=== PATIENT | male | born 1940 | race African-American/Black ===

== ENCOUNTER 2020-07-28 22:33 | Inpatient (IN) ==
[2020-07-28] MEDS ORDERED: SODIUM CHLORIDE 0.9% 1,000 ML IV STA (23:15)
[2020-07-28 23:29] LABS: Basophils % 0.1 % (0.0-0.8); Hematocrit 42.5 VOL% (42.0-52.0); Hemoglobin 14.4 GM/DL (14.0-18.0); Immature Granulocytes % 0.5 %; Immature Granulocytes Absolute 0.05 #; Lymphocytes # 0.6 10*3/uL (1.4-4.0); Lymphocytes % 6.3 % (21.2-54.2); Mean Corpuscular HGB Conc 33.9 GM/DL (32-36); Mean Platelet Volume 12.5 FL (9.6-12.0); Monocytes % 3.8 % (1.7-12.7); Neutrophils % 89.3 % (38.7-73.9); Platelet Count 152 T/CUMM (130-400); Red Cell Distribution Width 14.6 % (9.3-17.3); White Blood Count 10.1 T/CUMM (4-12)
[2020-07-28 23:47] LABS: Albumin 3.7 G/DL (3.4-5.0); Bilirubin,Total 0.9 MG/DL (0.2-1.0); Calcium 9.1 MG/DL (8.5-10.1); Osmolality,Calculated 341.2 MOS/KG (273-304); Total Protein 7.9 G/DL (6.4-8.2)
[2020-07-29 00:12] LABS: Potassium 6.4 MMOL/L (3.5-5.1)
[2020-07-29] MEDS ORDERED: SODIUM CHLORIDE 0.9% 1,000 ML IV STA (00:19)
[2020-07-29] MEDS ORDERED: SODIUM CHLORIDE 0.9% 1,000 ML IV ONE (01:00)
[2020-07-29] MEDS ORDERED: SODIUM BICARB INJ 100 MEQ in STERILE WATER INJ 400 ML IV PRN (01:00)
[2020-07-29] MEDS ORDERED: ONDANSETRON 4 MG/2 ML VIAL IV PRN (01:00)
[2020-07-29] MEDS ORDERED: DEXTROSE 50% 25 GM/50 ML VIAL IV PRN ×2 (01:00)
[2020-07-29] MEDS ORDERED: hydrALAZINE 20 MG/1 ML VIAL IV PRN (01:00)
[2020-07-29] MEDS ORDERED: ACETAMINOPHEN 325 MG TABLET PO PRN (01:00)
[2020-07-29] MEDS ORDERED: SODIUM PHOSPHATE INJ 20.2 MMOL in SODIUM CHLORIDE 0.9% 250 ML IV PRN (01:00)
[2020-07-29] MEDS ORDERED: INSULIN REGULAR 100 UNIT/ML IV ONE (01:34)
[2020-07-29] MEDS: ENOXAPARIN 30 MG/0.3 ML SYRINGE SUBCUT SCH (01:45)
[2020-07-29 01:47] LABS: Bacteria,Urine Occasional /HPF (Few); Bilirubin,Urine Negative (Negative); Blood, Urine Moderate mg/dL (Negative); Glucose,Urine (UA) >=500 mg/dL (Negative); Hyaline Casts,Urine 1 /LPF (0-3); Ketones,Urine 5 mg/dL (Negative); Mucus,Urine Occasional /LPF (Occasional); Nitrite,Urine Negative (Negative); Protein,Urine Negative; RBC,Urine 2 /HPF (0-4); Urine Appearance Slightly Hazy (Clear); Urine Color Yellow (Yellow); Urine Specific Gravity 1.016 (1.001-1.035); Urine Urobilinogen < 2.0 EU/DL (0.2-1.0)
[2020-07-29 03:03] LABS: ABG Base Excess -12.8 MMOL/L (-2.5-2.5); ABG HCO3 14.6 MMOL/L (20-26); ABG Oxygen Saturation 93.8 % (95-100); ABG PCO2 29.8 MM HG (35-48); ABG PH 7.258 (7.35-7.45); ABG PO2 80.3 MM HG (80-95)
[2020-07-29 03:24] LABS: Hematocrit 38.7 VOL% (42.0-52.0); Hemoglobin 13.1 GM/DL (14.0-18.0); Immature Granulocytes % 0.4 %; Immature Granulocytes Absolute 0.01 #; Lymphocytes # 0.3 10*3/uL (1.4-4.0); Lymphocytes % 10.7 % (21.2-54.2); Mean Corpuscular HGB Conc 33.9 GM/DL (32-36); Mean Corpuscular Volume 84.1 FL (87-102); Mean Platelet Volume 12.2 FL (9.6-12.0); Monocytes % 0.4 % (1.7-12.7); Neutrophils % 88.5 % (38.7-73.9); Platelet Count 133 T/CUMM (130-400); Red Cell Distribution Width 13.9 % (9.3-17.3); White Blood Count 2.7 T/CUMM (4-12)
[2020-07-29] MEDS: SODIUM CHLORIDE 0.9% 1,000 ML IV SCH ×2 (03:41→04:47)
[2020-07-29 03:42] LABS: Calcium 8.1 MG/DL (8.5-10.1); Osmolality,Calculated 336.7 MOS/KG (273-304); Potassium 4.8 MMOL/L (3.5-5.1)
[2020-07-29] MEDS ORDERED: INSULIN REGULAR DRIP 100 ML IV SCH (04:00)
[2020-07-29] MEDS ORDERED: LORazepam 2 MG/1 ML VIAL ONE (04:04)
[2020-07-29] MEDS ORDERED: LORazepam 2 MG/1 ML VIAL IV STA (04:07)
[2020-07-29 04:36] LABS: Hypochromasia 1+; Microcytosis 1+; Ovalocytes Slight
[2020-07-29 06:04] LABS: Calcium 7.9 MG/DL (8.5-10.1); Osmolality,Calculated 335.6 MOS/KG (273-304); Potassium 4.7 MMOL/L (3.5-5.1)
[2020-07-29] MEDS ORDERED: SODIUM CHLORIDE 0.9% 1,000 ML IV SCH (06:30)
[2020-07-29] MEDS ORDERED: GLUCAGON 1 MG VIAL IM PRN (08:42)
[2020-07-29] MEDS ORDERED: INSULIN DETEMIR 100 UNIT/ML SUBCUT SCH (09:00)
[2020-07-29] MEDS: INSULIN GLARGINE 100 UNIT/ML SUBCUT SCH ×2 (09:17→22:01)
[2020-07-29] MEDS: PANTOPRAZOLE 40 MG TABLET PO SCH (09:29)
[2020-07-29] MEDS: SODIUM CHLORIDE 0.45% 1,000 ML IV SCH ×3 (09:30→17:30)
[2020-07-29 09:56] LABS: Calcium 8.1 MG/DL (8.5-10.1); Osmolality,Calculated 330.1 MOS/KG (273-304); Potassium 5.1 MMOL/L (3.5-5.1)
[2020-07-29] MEDS: INSULIN REGULAR 100 UNIT/ML SUBCUT SCH ×4 (11:33→20:40)
[2020-07-29 15:29] LABS: Calcium 8.1 MG/DL (8.5-10.1); Potassium 4.7 MMOL/L (3.5-5.1)
[2020-07-29 18:11] LABS: Calcium 8.1 MG/DL (8.5-10.1); Potassium 4.6 MMOL/L (3.5-5.1)
[2020-07-29] MEDS ORDERED: SODIUM CHLORIDE 0.45% 1,000 ML IV SCH (18:30)
[2020-07-29 21:53] LABS: Calcium 8.3 MG/DL (8.5-10.1); Osmolality,Calculated 322.6 MOS/KG (273-304); Potassium 4.5 MMOL/L (3.5-5.1)
[2020-07-30] MEDS: INSULIN REGULAR 100 UNIT/ML SUBCUT SCH ×6 (00:20→21:08)
[2020-07-30] MEDS: SODIUM CHLORIDE 0.45% 1,000 ML IV SCH ×3 (01:39→16:42)
[2020-07-30] MEDS: ENOXAPARIN 30 MG/0.3 ML SYRINGE SUBCUT SCH (01:40)
[2020-07-30 06:12] LABS: Basophils % 0.5 % (0.0-0.8); Eosinophils # 0.1 10*3/uL (0.0-0.87); Eosinophils % 6.1 % (0.00-10.9); Hematocrit 36.9 VOL% (42.0-52.0); Hemoglobin 12.4 GM/DL (14.0-18.0); Immature Granulocytes % 5.6 %; Immature Granulocytes Absolute 0.11 #; Lymphocytes # 0.7 10*3/uL (1.4-4.0); Lymphocytes % 35.4 % (21.2-54.2); Mean Corpuscular HGB Conc 33.6 GM/DL (32-36); Mean Corpuscular Volume 83.7 FL (87-102); Mean Platelet Volume 12.4 FL (9.6-12.0); Neutrophils % 50.4 % (38.7-73.9); Platelet Count 118 T/CUMM (130-400); Red Blood Count 4.41 MC/CUMM (3.8-5.5); Red Cell Distribution Width 14.4 % (9.3-17.3)
[2020-07-30 06:20] LABS: Calcium 8.3 MG/DL (8.5-10.1); Osmolality,Calculated 315.9 MOS/KG (273-304); Potassium 4.4 MMOL/L (3.5-5.1)
[2020-07-30 08:07] LABS: Anisocytosis Slight; Band Neutrophils 9 % (0-10); Eosinophils 8 % (0-10); Lymphocytes 39 % (20-55); Metamyelocytes 1 %; Nucleated Red Blood Cells 1 (0-5); Platelet Estimate Adequate; Segmented Neutrophils 42 % (50-85); Smudge Cells Few; Total Cells Counted 100
[2020-07-30 08:08] LABS: Burr Cells Few
[2020-07-30] MEDS: INSULIN GLARGINE 100 UNIT/ML SUBCUT SCH ×2 (09:15→22:46)
[2020-07-30] MEDS: PANTOPRAZOLE 40 MG TABLET PO SCH (09:15)
[2020-07-31] MEDS: INSULIN REGULAR 100 UNIT/ML SUBCUT SCH ×7 (00:33→21:00)
[2020-07-31] MEDS: SODIUM CHLORIDE 0.45% 1,000 ML IV SCH ×4 (00:33→16:30)
[2020-07-31] MEDS: ENOXAPARIN 30 MG/0.3 ML SYRINGE SUBCUT SCH (02:00)
[2020-07-31 07:05] LABS: Basophils % 0.3 % (0.0-0.8); Eosinophils # 0.2 10*3/uL (0.0-0.87); Eosinophils % 1.7 % (0.00-10.9); Hematocrit 38.2 VOL% (42.0-52.0); Immature Granulocytes % 0.4 %; Immature Granulocytes Absolute 0.05 #; Lymphocytes % 8.8 % (21.2-54.2); Mean Corpuscular Volume 82.5 FL (87-102); Mean Platelet Volume 12.1 FL (9.6-12.0); Monocytes % 2.5 % (1.7-12.7); Neutrophils % 86.3 % (38.7-73.9); Platelet Count 102 T/CUMM (130-400); Red Blood Count 4.63 MC/CUMM (3.8-5.5); Red Cell Distribution Width 14.8 % (9.3-17.3); White Blood Count 11.7 T/CUMM (4-12)
[2020-07-31 07:28] LABS: Calcium 8.4 MG/DL (8.5-10.1); Osmolality,Calculated 306.1 MOS/KG (273-304); Potassium 4.2 MMOL/L (3.5-5.1)
[2020-07-31] MEDS: INSULIN GLARGINE 100 UNIT/ML SUBCUT SCH ×2 (08:50→21:45)
[2020-07-31] MEDS: PANTOPRAZOLE 40 MG TABLET PO SCH (08:50)
[2020-07-31 09:12] LABS: Anisocytosis Slight; Band Neutrophils 25 % (0-10); Eosinophils 1 % (0-10); Lymphocytes 8 % (20-55); Platelet Estimate Adequate; Segmented Neutrophils 65 % (50-85); Smudge Cells Few; Total Cells Counted 100
[2020-07-31] MEDS: OLANZapine 5 MG TABLET PO PRN ×2 (12:52→21:45)
[2020-08-01] MEDS: INSULIN REGULAR 100 UNIT/ML SUBCUT SCH ×6 (00:10→22:43)
[2020-08-01] MEDS: ENOXAPARIN 30 MG/0.3 ML SYRINGE SUBCUT SCH (01:47)
[2020-08-01] MEDS: SODIUM CHLORIDE 0.45% 1,000 ML IV SCH ×3 (04:41→14:45)
[2020-08-01 06:02] LABS: Basophils % 0.2 % (0.0-0.8); Eosinophils # 0.2 10*3/uL (0.0-0.87); Eosinophils % 1.7 % (0.00-10.9); Hematocrit 34.2 VOL% (42.0-52.0); Hemoglobin 12.2 GM/DL (14.0-18.0); Immature Granulocytes % 0.7 %; Immature Granulocytes Absolute 0.06 #; Lymphocytes # 1.1 10*3/uL (1.4-4.0); Lymphocytes % 12.1 % (21.2-54.2); Mean Corpuscular HGB Conc 35.7 GM/DL (32-36); Mean Corpuscular Volume 79.7 FL (87-102); Mean Platelet Volume 11.6 FL (9.6-12.0); Monocytes % 5.2 % (1.7-12.7); Neutrophils % 80.1 % (38.7-73.9); Platelet Count 84 T/CUMM (130-400); Red Blood Count 4.29 MC/CUMM (3.8-5.5); Red Cell Distribution Width 14.6 % (9.3-17.3); White Blood Count 9.2 T/CUMM (4-12)
[2020-08-01 06:27] LABS: Band Neutrophils 6 % (0-10); Eosinophils 2 % (0-10); Hypochromasia 1+; Lymphocytes 10 % (20-55); Microcytosis 1+; Segmented Neutrophils 78 % (50-85); Total Cells Counted 100
[2020-08-01 06:28] LABS: Ovalocytes Slight; Platelet Estimate Decreased
[2020-08-01 06:31] LABS: Calcium 8.2 MG/DL (8.5-10.1); Osmolality,Calculated 299.3 MOS/KG (273-304); Potassium 3.8 MMOL/L (3.5-5.1)
[2020-08-01] MEDS: INSULIN GLARGINE 100 UNIT/ML SUBCUT SCH ×2 (10:18→22:43)
[2020-08-01] MEDS: PANTOPRAZOLE 40 MG TABLET PO SCH (10:18)
[2020-08-01] MEDS ORDERED: LIDOCAINE 1% 20 ML VIAL MISC INJ ONE (18:00)
[2020-08-01] MEDS ORDERED: DIPH/TET/ACEL PERT BOOSTER VACCINE 0.5 ML VIAL IM ONE (20:49)
[2020-08-01] MEDS: MUPIROCIN 2% OINT 22 GM TUBE TOP SCH (22:43)
[2020-08-01] MEDS: CEPHALEXIN 50 MG/ML 100 ML/BOTTLE PO SCH (22:44)
[2020-08-02] MEDS: INSULIN REGULAR 100 UNIT/ML SUBCUT SCH ×6 (02:12→21:13)
[2020-08-02] MEDS: ENOXAPARIN 30 MG/0.3 ML SYRINGE SUBCUT SCH (04:32)
[2020-08-02 06:02] LABS: Albumin 2.4 G/DL (3.4-5.0); Bilirubin,Total 0.9 MG/DL (0.2-1.0); Calcium 7.9 MG/DL (8.5-10.1); Osmolality,Calculated 293.4 MOS/KG (273-304); Potassium 3.4 MMOL/L (3.5-5.1); Total Protein 5.8 G/DL (6.4-8.2)
[2020-08-02] MEDS: SODIUM CHLORIDE 0.45% 1,000 ML IV SCH ×3 (07:01→17:32)
[2020-08-02] MEDS: CEPHALEXIN 50 MG/ML 100 ML/BOTTLE PO SCH ×4 (08:39→21:12)
[2020-08-02] MEDS: PANTOPRAZOLE 40 MG TABLET PO SCH (08:39)
[2020-08-02] MEDS: INSULIN GLARGINE 100 UNIT/ML SUBCUT SCH ×2 (08:40→21:13)
[2020-08-02] MEDS ORDERED: POTASSIUM CHLORIDE 20 MEQ TABLET PO ONE (08:44)
[2020-08-02] MEDS: MUPIROCIN 2% OINT 22 GM TUBE TOP SCH ×2 (09:01→21:14)
[2020-08-02] MEDS: MULTIVITAMIN (CENTRUM) TABLET PO SCH (11:55)
[2020-08-02] MEDS ORDERED: PHENOL 1.4% THROAT SPRAY 177 ML BOTTLE PO PRN (12:01)
[2020-08-03] MEDS: ENOXAPARIN 30 MG/0.3 ML SYRINGE SUBCUT SCH (01:01)
[2020-08-03] MEDS: INSULIN REGULAR 100 UNIT/ML SUBCUT SCH ×4 (01:01→13:49)
[2020-08-03] MEDS: SODIUM CHLORIDE 0.45% 1,000 ML IV SCH ×3 (01:01→14:26)
[2020-08-03 05:24] LABS: Basophils % 0.7 % (0.0-0.8); Eosinophils # 0.2 10*3/uL (0.0-0.87); Eosinophils % 8.4 % (0.00-10.9); Hematocrit 36.4 VOL% (42.0-52.0); Hemoglobin 12.2 GM/DL (14.0-18.0); Immature Granulocytes % 0.7 %; Immature Granulocytes Absolute 0.02 #; Lymphocytes # 1.3 10*3/uL (1.4-4.0); Lymphocytes % 43.6 % (21.2-54.2); Mean Corpuscular HGB Conc 33.5 GM/DL (32-36); Mean Corpuscular Volume 83.1 FL (87-102); Mean Platelet Volume 12.8 FL (9.6-12.0); Monocytes % 2.8 % (1.7-12.7); Neutrophils % 43.8 % (38.7-73.9); Platelet Count 106 T/CUMM (130-400); Red Blood Count 4.38 MC/CUMM (3.8-5.5); Red Cell Distribution Width 14.8 % (9.3-17.3); White Blood Count 2.9 T/CUMM (4-12)
[2020-08-03 05:45] LABS: Band Neutrophils 4 % (0-10); Eosinophils 4 % (0-10); Hypochromasia 1+; Lymphocytes 47 % (20-55); Microcytosis 1+; Myelocytes 1 %; Segmented Neutrophils 43 % (50-85); Total Cells Counted 100
[2020-08-03 05:46] LABS: Platelet Estimate Adequate
[2020-08-03 05:53] LABS: Osmolality,Calculated 291.4 MOS/KG (273-304)
[2020-08-03] MEDS: CEPHALEXIN 50 MG/ML 100 ML/BOTTLE PO SCH ×2 (08:30→14:26)
[2020-08-03] MEDS: MULTIVITAMIN (CENTRUM) TABLET PO SCH (08:31)
[2020-08-03] MEDS: PANTOPRAZOLE 40 MG TABLET PO SCH (08:31)
[2020-08-03] MEDS: INSULIN GLARGINE 100 UNIT/ML SUBCUT SCH (08:31)
[2020-08-03] MEDS: MUPIROCIN 2% OINT 22 GM TUBE TOP SCH (09:47)
[2020-08-03 16:18] VITALS: BP 142/69
== END 2020-08-03 17:16 | disposition swing bed (61) | DRG 637 ==
LOC: N.ED 22:33 → N.EDINP 07-29 00:48 → SUATTDRO 07-29 00:48 → N.EDINP 07-29 17:05 → N.TELEN 07-29 17:25
PROVIDERS: ADMIT Internal Medicine; ATTEND Internal Medicine

== ENCOUNTER 2020-08-11 14:53 | Inpatient (IN) ==
[2020-08-11] MEDS ORDERED: SODIUM CHLORIDE 0.9% 1,000 ML IV STA (15:24)
[2020-08-11 16:21] LABS: Basophils % 0.3 % (0.0-0.8); Hemoglobin 11.3 GM/DL (14.0-18.0); Immature Granulocytes % 0.8 %; Immature Granulocytes Absolute 0.06 #; Lymphocytes # 0.7 10*3/uL (1.4-4.0); Lymphocytes % 9.3 % (21.2-54.2); Mean Corpuscular HGB Conc 32.3 GM/DL (32-36); Mean Corpuscular Volume 86.4 FL (87-102); Mean Platelet Volume 12.4 FL (9.6-12.0); Monocytes % 4.7 % (1.7-12.7); Neutrophils % 84.9 % (38.7-73.9); Platelet Count 338 T/CUMM (130-400); Red Blood Count 4.05 MC/CUMM (3.8-5.5); Red Cell Distribution Width 15.3 % (9.3-17.3); White Blood Count 7.7 T/CUMM (4-12)
[2020-08-11 16:30] LABS: VBG HCO3 16.5 MEQ/L (24-28); VBG Oxygen Saturation 97.2 %; VBG PCO2 37.6 MMHG (41-51); VBG PH 7.254; VBG Total CO2 15.1 MMOL/L
[2020-08-11 16:39] LABS: Albumin 2.8 G/DL (3.4-5.0); Calcium 8.7 MG/DL (8.5-10.1); Osmolality,Calculated 347.1 MOS/KG (273-304); Potassium 5.8 MMOL/L (3.5-5.1); Total Protein 7.5 G/DL (6.4-8.2)
[2020-08-11] MEDS ORDERED: INSULIN REGULAR DRIP 100 ML IV PRN (16:49)
[2020-08-11] MEDS ORDERED: DEXTROSE 50% 25 GM/50 ML VIAL IV PRN ×2 (17:16)
[2020-08-11] MEDS ORDERED: SODIUM BICARB INJ 100 MEQ in STERILE WATER INJ 400 ML IV PRN (17:16)
[2020-08-11] MEDS ORDERED: SODIUM CHLORIDE 0.9% 1,000 ML IV ONE (17:16)
[2020-08-11] MEDS ORDERED: INSULIN REGULAR 100 UNIT/ML IV ONE (17:16)
[2020-08-11] MEDS ORDERED: SODIUM CHLORIDE 0.9% IV PRN (17:16)
[2020-08-11] MEDS ORDERED: MAGNESIUM SULF RIDER 2 GM/50 ML PREMIX IV PRN (17:16)
[2020-08-11] MEDS ORDERED: MAGNESIUM SULF RIDER 4 GM/100 ML PREMIX IV PRN (17:16)
[2020-08-11] MEDS ORDERED: SODIUM PHOSPHATE IV PRN (17:16)
[2020-08-11] MEDS ORDERED: POTASSIUM CHLORIDE RIDER 10 MEQ/100 ML PREMIX IV PRN (17:16)
[2020-08-11] MEDS ORDERED: ALBUTEROL 2.5 MG/3 ML NEB RESP TX PRN (17:19)
[2020-08-11] MEDS ORDERED: hydrALAZINE 20 MG/1 ML VIAL IV PRN (17:23)
[2020-08-11] MEDS ORDERED: NICOTINE 21 MG/24 HR PATCH TRANSDERM PRN (17:26)
[2020-08-11 17:30] LABS: Bacteria,Urine Occasional /HPF (Few); Bilirubin,Urine Negative (Negative); Blood, Urine Moderate mg/dL (Negative); Glucose,Urine (UA) >=500 mg/dL (Negative); Hyaline Casts,Urine 1 /LPF (0-3); Ketones,Urine 5 mg/dL (Negative); Mucus,Urine Occasional /LPF (Occasional); Nitrite,Urine Negative (Negative); Protein,Urine Negative; RBC,Urine 3 /HPF (0-4); Squamous Epithelial Cell,Urine Occasional /HPF (0-10); Urine Appearance CLOUDY (Clear); Urine Color Yellow (Yellow); Urine Specific Gravity 1.017 (1.001-1.035); Urine Urobilinogen < 2.0 EU/DL (0.2-1.0)
[2020-08-11] MEDS ORDERED: INSULIN REGULAR DRIP 100 ML IV SCH (17:30)
[2020-08-11 17:48] LABS: ABG Base Excess -10.7 MMOL/L (-2.5-2.5); ABG Oxygen Saturation 97.2 % (95-100); ABG PCO2 34.8 MM HG (35-48); ABG PH 7.261 (7.35-7.45); ABG TCO2 14.3 MMOL/L (23-27); Pt O2 Delivery Device Room Air
[2020-08-11 18:21] LABS: Potassium 5.1 MMOL/L (3.5-5.1)
[2020-08-11 18:25] LABS: Calcium 8.3 MG/DL (8.5-10.1)
[2020-08-11] MEDS: SODIUM CHLORIDE 0.9% 1,000 ML IV SCH ×2 (18:35→20:22)
[2020-08-11] MEDS: cefTRIAXone 1,000 MG in SODIUM CHLORIDE 0.9% 100 ML IV SCH (19:14)
[2020-08-11] MEDS: ENOXAPARIN 30 MG/0.3 ML SYRINGE SUBCUT SCH (19:15)
[2020-08-11 21:35] LABS: Calcium 8.2 MG/DL (8.5-10.1); Osmolality,Calculated 336.9 MOS/KG (273-304); Potassium 4.5 MMOL/L (3.5-5.1)
[2020-08-11] MEDS ORDERED: SODIUM CHLORIDE 0.9% 1,000 ML IV SCH (22:30)
[2020-08-12] MEDS: DEXTROSE 5% NACL 0.9% 1,000 ML IV SCH ×2 (01:00→04:00)
[2020-08-12 04:08] LABS: ABG Base Excess -5.4 MMOL/L (-2.5-2.5); ABG HCO3 18.9 MMOL/L (20-26); ABG Oxygen Saturation 96.6 % (95-100); ABG PCO2 32.8 MM HG (35-48); ABG PH 7.379 (7.35-7.45); ABG PO2 98.1 MM HG (80-95); ABG TCO2 19.9 MMOL/L (23-27)
[2020-08-12 06:01] LABS: Basophils % 0.2 % (0.0-0.8); Eosinophils % 0.4 % (0.00-10.9); Hematocrit 30.5 VOL% (42.0-52.0); Hemoglobin 10.2 GM/DL (14.0-18.0); Immature Granulocytes % 0.2 %; Immature Granulocytes Absolute 0.02 #; Lymphocytes # 0.6 10*3/uL (1.4-4.0); Lymphocytes % 5.9 % (21.2-54.2); Mean Corpuscular HGB Conc 33.4 GM/DL (32-36); Mean Corpuscular Volume 84.3 FL (87-102); Mean Platelet Volume 12.1 FL (9.6-12.0); Monocytes % 3.3 % (1.7-12.7); Platelet Count 282 T/CUMM (130-400); Red Blood Count 3.62 MC/CUMM (3.8-5.5); Red Cell Distribution Width 15.1 % (9.3-17.3)
[2020-08-12 06:13] LABS: Calcium 8.2 MG/DL (8.5-10.1); Osmolality,Calculated 327.7 MOS/KG (273-304); Potassium 4.3 MMOL/L (3.5-5.1)
[2020-08-12 07:15] LABS: Anisocytosis 1+; Band Neutrophils 34 % (0-10); Lymphocytes 9 % (20-55); Metamyelocytes 1 %; Platelet Estimate Normal; Segmented Neutrophils 54 % (50-85); Target Cells Few; Total Cells Counted 100
[2020-08-12] MEDS ORDERED: GLUCAGON 1 MG VIAL IM PRN (07:15)
[2020-08-12] MEDS ORDERED: DEXTROSE 50% 25 GM/50 ML VIAL IV PRN (07:15)
[2020-08-12] MEDS ORDERED: INSULIN GLARGINE 100 UNIT/ML SUBCUT SCH ×2 (09:00→21:00)
[2020-08-12] MEDS: SODIUM CHLORIDE 23.4% CONC INJ 38.5 MEQ in STERILE WATER INJ 1,000 ML IV SCH ×2 (09:24→17:14)
[2020-08-12] MEDS ORDERED: SODIUM CHLORIDE 0.45% 1,000 ML IV SCH (10:30)
[2020-08-12] MEDS: INSULIN REGULAR 100 UNIT/ML SUBCUT SCH ×3 (11:59→21:55)
[2020-08-12] MEDS ORDERED: INSULIN GLARGINE 100 UNIT/ML SUBCUT ONE (14:06)
[2020-08-12] MEDS: ENOXAPARIN 30 MG/0.3 ML SYRINGE SUBCUT SCH (17:05)
[2020-08-12] MEDS: cefTRIAXone 1,000 MG in SODIUM CHLORIDE 0.9% 100 ML IV SCH (18:27)
[2020-08-12] MEDS: INSULIN GLARGINE 100 UNIT/ML SUBCUT SCH (21:54)
[2020-08-13] MEDS: INSULIN REGULAR 100 UNIT/ML SUBCUT SCH ×6 (00:10→21:07)
[2020-08-13] MEDS: SODIUM CHLORIDE 23.4% CONC INJ 38.5 MEQ in STERILE WATER INJ 1,000 ML IV SCH ×2 (04:54→17:45)
[2020-08-13 06:04] LABS: Basophils % 0.2 % (0.0-0.8); Eosinophils # 0.2 10*3/uL (0.0-0.87); Eosinophils % 1.9 % (0.00-10.9); Hematocrit 28.9 VOL% (42.0-52.0); Hemoglobin 9.9 GM/DL (14.0-18.0); Immature Granulocytes % 1.2 %; Immature Granulocytes Absolute 0.11 #; Lymphocytes # 1.2 10*3/uL (1.4-4.0); Lymphocytes % 12.9 % (21.2-54.2); Mean Corpuscular HGB Conc 34.3 GM/DL (32-36); Mean Corpuscular Volume 84.5 FL (87-102); Mean Platelet Volume 12.1 FL (9.6-12.0); Monocytes % 4.3 % (1.7-12.7); Neutrophils % 79.5 % (38.7-73.9); Platelet Count 245 T/CUMM (130-400); Red Blood Count 3.42 MC/CUMM (3.8-5.5); Red Cell Distribution Width 15.7 % (9.3-17.3); White Blood Count 9.3 T/CUMM (4-12)
[2020-08-13 06:13] LABS: Calcium 8.1 MG/DL (8.5-10.1); Osmolality,Calculated 315.2 MOS/KG (273-304); Potassium 3.8 MMOL/L (3.5-5.1)
[2020-08-13 07:16] LABS: Band Neutrophils 6 % (0-10); Eosinophils 3 % (0-10); Hypochromasia 1+; Lymphocytes 9 % (20-55); Segmented Neutrophils 80 % (50-85); Total Cells Counted 100
[2020-08-13 07:17] LABS: Microcytosis 1+; Platelet Estimate Normal
[2020-08-13] MEDS: INSULIN GLARGINE 100 UNIT/ML SUBCUT SCH ×2 (08:48→21:07)
[2020-08-13] MEDS: ENOXAPARIN 30 MG/0.3 ML SYRINGE SUBCUT SCH (17:45)
[2020-08-13] MEDS: cefTRIAXone 1,000 MG in SODIUM CHLORIDE 0.9% 100 ML IV SCH (17:45)
[2020-08-14] MEDS: SODIUM CHLORIDE 23.4% CONC INJ 38.5 MEQ in STERILE WATER INJ 1,000 ML IV SCH ×3 (00:22→14:09)
[2020-08-14] MEDS: INSULIN REGULAR 100 UNIT/ML SUBCUT SCH ×7 (01:25→23:15)
[2020-08-14] MEDS: INSULIN GLARGINE 100 UNIT/ML SUBCUT SCH ×2 (10:31→20:34)
[2020-08-14 10:46] LABS: Calcium 7.6 MG/DL (8.5-10.1); Osmolality,Calculated 294.6 MOS/KG (273-304); Potassium 3.4 MMOL/L (3.5-5.1)
[2020-08-14] MEDS: ENOXAPARIN 30 MG/0.3 ML SYRINGE SUBCUT SCH (16:59)
[2020-08-14] MEDS: POTASSIUM CHLORIDE 20 MEQ TABLET PO SCH (16:59)
[2020-08-14] MEDS: cefTRIAXone 1,000 MG in SODIUM CHLORIDE 0.9% 100 ML IV SCH (17:00)
[2020-08-15] MEDS: SODIUM CHLORIDE 23.4% CONC INJ 38.5 MEQ in STERILE WATER INJ 1,000 ML IV SCH ×2 (00:26→14:21)
[2020-08-15] MEDS: INSULIN REGULAR 100 UNIT/ML SUBCUT SCH ×5 (03:21→20:37)
[2020-08-15 05:59] LABS: Basophils % 0.7 % (0.0-0.8); Eosinophils # 0.2 10*3/uL (0.0-0.87); Eosinophils % 2.7 % (0.00-10.9); Hemoglobin 9.1 GM/DL (14.0-18.0); Immature Granulocytes % 0.5 %; Immature Granulocytes Absolute 0.03 #; Lymphocytes # 1.5 10*3/uL (1.4-4.0); Lymphocytes % 24.7 % (21.2-54.2); Mean Corpuscular HGB Conc 33.7 GM/DL (32-36); Mean Corpuscular Volume 84.1 FL (87-102); Mean Platelet Volume 11.6 FL (9.6-12.0); Monocytes % 4.9 % (1.7-12.7); Neutrophils % 66.5 % (38.7-73.9); Platelet Count 208 T/CUMM (130-400); Red Blood Count 3.21 MC/CUMM (3.8-5.5)
[2020-08-15 06:32] LABS: Eosinophils 2 % (0-10); Lymphocytes 31 % (20-55); Segmented Neutrophils 64 % (50-85); Total Cells Counted 100
[2020-08-15 06:33] LABS: Hypochromasia 1+; Microcytosis 1+; Platelet Estimate Adequate
[2020-08-15 06:40] LABS: Calcium 7.7 MG/DL (8.5-10.1); Osmolality,Calculated 289.8 MOS/KG (273-304)
[2020-08-15] MEDS: CHOLECALCIFEROL 1,000 UNIT TABLET PO SCH (09:12)
[2020-08-15] MEDS: POTASSIUM CHLORIDE 20 MEQ TABLET PO SCH (09:12)
[2020-08-15] MEDS: cefTRIAXone 2,000 MG in SODIUM CHLORIDE 0.9% 100 ML IV SCH (09:57)
[2020-08-15] MEDS: ENOXAPARIN 30 MG/0.3 ML SYRINGE SUBCUT SCH (17:38)
[2020-08-15] MEDS: INSULIN GLARGINE 100 UNIT/ML SUBCUT SCH (20:38)
[2020-08-16] MEDS: INSULIN REGULAR 100 UNIT/ML SUBCUT SCH ×4 (00:35→13:39)
[2020-08-16] MEDS: SODIUM CHLORIDE 23.4% CONC INJ 38.5 MEQ in STERILE WATER INJ 1,000 ML IV SCH (04:10)
[2020-08-16 05:39] LABS: Basophils % 0.5 % (0.0-0.8); Eosinophils # 0.2 10*3/uL (0.0-0.87); Eosinophils % 2.9 % (0.00-10.9); Hematocrit 27.7 VOL% (42.0-52.0); Hemoglobin 9.2 GM/DL (14.0-18.0); Immature Granulocytes % 0.3 %; Immature Granulocytes Absolute 0.02 #; Lymphocytes # 1.4 10*3/uL (1.4-4.0); Lymphocytes % 24.9 % (21.2-54.2); Mean Corpuscular HGB Conc 33.2 GM/DL (32-36); Mean Corpuscular Volume 83.7 FL (87-102); Mean Platelet Volume 11.7 FL (9.6-12.0); Monocytes % 7.8 % (1.7-12.7); Neutrophils % 63.6 % (38.7-73.9); Platelet Count 221 T/CUMM (130-400); Red Blood Count 3.31 MC/CUMM (3.8-5.5); Red Cell Distribution Width 14.9 % (9.3-17.3); White Blood Count 5.8 T/CUMM (4-12)
[2020-08-16 05:59] LABS: Calcium 7.9 MG/DL (8.5-10.1); Osmolality,Calculated 287.8 MOS/KG (273-304)
[2020-08-16 06:01] LABS: Hypochromasia 1+; Microcytosis 1+; Platelet Estimate Adequate
[2020-08-16] MEDS: cefTRIAXone 2,000 MG in SODIUM CHLORIDE 0.9% 100 ML IV SCH (08:13)
[2020-08-16] MEDS: POTASSIUM CHLORIDE 20 MEQ TABLET PO SCH (08:15)
[2020-08-16] MEDS: CHOLECALCIFEROL 1,000 UNIT TABLET PO SCH (08:15)
[2020-08-16 08:58] VITALS: BP 136/65
[2020-08-16] MEDS ORDERED: APIXABAN 5 MG TABLET PO SCH (14:00)
[2020-08-16] MEDS ORDERED: DOXYCYCLINE HYCLATE 100 MG CAPSULE PO SCH (21:00)
[2020-08-23] MEDS ORDERED: APIXABAN 5 MG TABLET PO SCH (09:00)
== END 2020-08-16 14:05 | disposition swing bed (61) | DRG 871 ==
LOC: EDBD → EDUNIT# → N.ED 14:53 → N.EDINP 17:19 → SUATTDRO 17:19 → N.EDINP 18:04 → N.ICU 18:30 → N.5E 08-12 18:02
PROVIDERS: ADMIT Internal Medicine; ATTEND Hospitalist